=== PATIENT | male | born 1960 | race Caucasian/White ===

== ENCOUNTER 2017-11-19 04:08 | Emergency (ER) | payer SELFPAY ==
[~2017-11-19] VITALS: Ht 165.1 cm; Wt 105.2 kg
[2017-11-19 04:20] VITALS: BP 125/81
--- NOTE | 2017-11-19 04:23 | NUR ---
TO LOBBY VIA W/C VSS. A/W TERESA TOLLIVER NOTED
--- NOTE | 2017-11-19 06:40 | NUR ---
PATIENT CALLED TO BED, NO RESPONSE
--- NOTE | 2017-11-19 06:47 | NUR ---
CALLED THE SECOND TIME NO ANSWER.
--- NOTE | 2017-11-19 06:54 | NUR ---
PATIENT CALLED THE THIRD TIME TO BED, NO RESPONSE
== END 2017-11-19 06:54 | disposition left against medical advice (07) ==
LOC: MED 04:08
DX: M79.602 Pain in left arm (principal); Z53.21 Procedure and treatment not carried out due to patient leaving prior to being seen by health care provider

== ENCOUNTER 2018-02-11 15:13 | Emergency (ER) | payer SELFPAY ==
[~2018-02-11] VITALS: Ht 165.1 cm; Wt 82.2 kg
[2018-02-11 15:25] VITALS: BP 142/76
--- NOTE | 2018-02-11 15:31 | NUR ---
PT AMBULATED TO [facility]
--- NOTE | 2018-02-11 15:35 | NUR ---
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 PT DENIES ALOC . DENIES N/V/D; SKIN IS PINK/WARM/DRY; AAOX4 WITH EVEN AND STEADY GAIT; LUNGS CLEAR BL; HR EVEN AND REGULAR; PT DENIES ANY FEVER, CP, SOB, OR COUGH AT THIS TIME; PATIENT STATES PAIN OF 10/10 AT THIS TIME; VSS; PATIENT POSITIONED FOR COMFORT; HOB ELEVATED; BEDRAILS UP X2; BED DOWN. ER MD MADE AWARE OF PT STATUS.
--- NOTE | 2018-02-11 15:48 | NUR ---
DR VIVEROS EVALUATING PT AT BEDSIDE
[2018-02-11] MEDS ORDERED: KETOROLAC 30 MG/ML VIAL IM ONE (15:55)
[2018-02-11] MEDS ORDERED: MORPHINE SULFATE 4 MG/ML SYR IM ONE (16:45)
--- NOTE | 2018-02-11 16:47 | NUR ---
PT TAKEN FOR CT AND XRAY
--- NOTE | 2018-02-11 18:20 | NUR ---
Patient discharged with v/s stable. Written and verbal after care instructions given and explained. Patient alert, oriented and verbalized understanding of instructions. Ambulatory with steady gait. All questions addressed prior to discharge. ID band removed. Patient advised to follow up with PMD. Rx of NAPROSYN AND NORCO given. Patient educated on indication of medication including possible reaction and side effects. Opportunity to ask questions provided and answered.
[2018-02-11 18:24] VITALS: BP 132/85
== END 2018-02-11 18:20 | disposition home or self-care (01) ==
LOC: MED 15:13
DX: S46.911A Strain of unspecified muscle, fascia and tendon at shoulder and upper arm level, right arm, initial encounter (principal); X58.XXXA Exposure to other specified factors, initial encounter; Y93.89 Activity, other specified; Y92.89 Other specified places as the place of occurrence of the external cause; Y99.8 Other external cause status
CPT/HCPCS: 71045; 72125; 96372; 99284; J1885; J2270; Q0092

== ENCOUNTER 2021-07-02 15:39 | Emergency (ER) | payer OTHER ==
[~2021-07-02] VITALS: Ht 165.1 cm; Wt 99.8 kg
[2021-07-02 15:40] VITALS: BP 160/97
--- NOTE | 2021-07-02 15:40 | NUR ---
PT BIBA AND PLACED IN BED 2
--- NOTE | 2021-07-02 15:44 | NUR ---
DR. TEMPLETON BEDSIDE EVALUATING PT
[2021-07-02] MEDS ORDERED: ACETAMINOPHEN EXTRA STRENGTH 500 MG TAB PO ONE (15:55)
[2021-07-02] MEDS ORDERED: diazePAM 5 MG TAB PO ONE (15:55)
[2021-07-02] MEDS ORDERED: KETOROLAC 30 MG/ML VIAL IM ONE (15:55)
--- NOTE | 2021-07-02 16:00 | NUR ---
61 Y MALE THAT WAS BIBA FROM [facility] FROM WORK. 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 [facility] ON SCENE REPORT PT WAS IN SEVERE PAIN AND DRAGGING HIS LEG TO THE GURNEY DUE TO PAIN. PT STATES PAIN IS CURRENTLY 8/10 AND IS THROBBING PAIN. DENIES ANY RELIEF AND STATED PAIN IS CONSTANTLY THERE HX DENIES RX DENIES
[2021-07-02 16:45] LABS: BASOPHILS % (AUTO) 1.1 % (0.0-2.0); EOSINOPHILS % (AUTO) 1.1 % (0.0-4.0); HEMATOCRIT 42.9 % (36-52); HEMOGLOBIN 14.9 g/dL (12.0-18.0); LYMPHOCYTES # (AUTO) 1.6 K/uL (2.0-11.5); LYMPHOCYTES % (AUTO) 40.3 % (20.5-51.1); MEAN CORPUSCULAR HEMOGLOBIN 33 pg (27-31); MEAN CORPUSCULAR HGB CONC 35 g/dL (33-37); MEAN CORPUSCULAR VOLUME 95.6 fL (80-94); MONOCYTES # (AUTO) 0.3 K/uL (0.8-1.0); MONOCYTES % (AUTO) 7.3 % (1.7-9.3); NEUTROPHILS % (AUTO) 50.2 % (42.2-75.2); PLATELET COUNT (AUTO) 220 K/uL (140-450); RED BLOOD CELL COUNT(AUTO) 4.49 MIL/uL (4.20-6.10); RED CELL DISTRIBUTION WIDTH 12.8 % (11.6-13.7)
[2021-07-02 17:00] LABS: ALBUMIN 3.4 g/dL (3.4-5.0); ANION GAP 14.9 (8-16); CARBON DIOXIDE 23.5 mmol/L (21-32); CREATININE 0.9 mg/dL (0.6-1.3); POTASSIUM 3.4 mmol/L (3.5-5.1); TOTAL BILIRUBIN 0.5 mg/dL (0.0-1.0)
[2021-07-02] MEDS ORDERED: METH-1681 PO (18:33)
[2021-07-02 18:39] VITALS: BP 124/82
--- NOTE | 2021-07-02 18:40 | NUR ---
Patient discharged with v/s stable. Written and verbal after care instructions given and explained. Patient alert, oriented and verbalized understanding of instructions. Ambulatory with steady gait. All questions addressed prior to discharge. ID band removed. Patient advised to follow up with PMD. Rx of ROBAXIN given. Patient educated on indication of medication including possible reaction and side effects. Opportunity to ask questions provided and answered.
== END 2021-07-02 18:40 | disposition home or self-care (01) ==
LOC: MED 15:39
DX: M54.6 Pain in thoracic spine (principal); M62.830 Muscle spasm of back
CPT/HCPCS: 36415; 71045; 80053; 84484; 85025; 93005; 96372; 99285; J1885

== ENCOUNTER 2022-03-08 19:34 | Emergency (ER) | payer MEDICAID, OTHER ==
[~2022-03-08] VITALS: Ht 165.1 cm; Wt 68.0 kg
[~2022-03-08 19:34] MED LIST: METH-1681 PO
[2022-03-08 19:35] VITALS: BP 130/77
--- NOTE | 2022-03-08 19:43 | NUR ---
PT TO [facility].
--- NOTE | 2022-03-08 19:46 | NUR ---
Dr. Short examining patient.
[2022-03-08 21:16] LABS: ALBUMIN 3.7 g/dL (3.4-5.0); ANION GAP 15.7 (8-16); CARBON DIOXIDE 23.2 mmol/L (21-32); CREATININE 0.8 mg/dL (0.6-1.3); POTASSIUM 3.9 mmol/L (3.5-5.1); TOTAL BILIRUBIN 0.4 mg/dL (0.0-1.0)
[2022-03-08 21:40] LABS: BASOPHILS % (AUTO) 0.3 % (0.0-2.0); EOSINOPHILS # (AUTO) 0.1 K/uL (0-0.4); EOSINOPHILS % (AUTO) 2.5 % (0.0-4.0); HEMATOCRIT 42.5 % (36-52); HEMOGLOBIN 14.7 g/dL (12.0-18.0); LYMPHOCYTES # (AUTO) 2.2 K/uL (2.0-11.5); LYMPHOCYTES % (AUTO) 53.3 % (20.5-51.1); MEAN CORPUSCULAR HEMOGLOBIN 32 pg (27-31); MEAN CORPUSCULAR HGB CONC 35 g/dL (33-37); MEAN CORPUSCULAR VOLUME 93.2 fL (80-94); MONOCYTES # (AUTO) 0.3 K/uL (0.8-1.0); MONOCYTES % (AUTO) 6.7 % (1.7-9.3); NEUTROPHILS # (AUTO) 1.5 K/uL (1.8-7.7); NEUTROPHILS % (AUTO) 37.2 % (42.2-75.2); PLATELET COUNT (AUTO) 274 K/uL (140-450); RED BLOOD CELL COUNT(AUTO) 4.56 MIL/uL (4.20-6.10); RED CELL DISTRIBUTION WIDTH 13.1 % (11.6-13.7); WHITE BLOOD COUNT (AUTO) 4.1 K/uL (4.8-10.8)
--- NOTE | 2022-03-08 22:33 | NUR ---
PT REPORTS CHEST FEELS NORMAL AT THIS TIME W/O PAIN.
--- NOTE | 2022-03-08 23:29 | NUR ---
Dr. Rivera examining patient.
[2022-03-08 23:39] VITALS: BP 124/85
--- NOTE | 2022-03-08 23:39 | NUR ---
Patient discharged with v/s stable. Written and verbal after care instructions given and explained. Patient verbalized understanding. Ambulatory with steady gait. All questions addressed prior to discharge. Advised to follow up with PMD.
== END 2022-03-08 23:39 | disposition home or self-care (01) ==
LOC: MED 19:34
DX: R07.89 Other chest pain (principal)
CPT/HCPCS: 36415; 71045; 80053; 83880; 84484; 85025; 93005; 99285

== ENCOUNTER 2022-05-02 15:32 | Emergency (ER) | payer MEDICAID ==
[~2022-05-02] VITALS: Ht 165.1 cm; Wt 77.1 kg
[2022-05-02 16:33] VITALS: BP 128/78
[2022-05-02 17:25] LABS: BASOPHILS % (AUTO) 0.6 % (0.0-2.0); EOSINOPHILS # (AUTO) 0.1 K/uL (0-0.4); EOSINOPHILS % (AUTO) 1.9 % (0.0-4.0); HEMATOCRIT 43.9 % (36-52); LYMPHOCYTES # (AUTO) 1.7 K/uL (2.0-11.5); LYMPHOCYTES % (AUTO) 43.3 % (20.5-51.1); MEAN CORPUSCULAR HEMOGLOBIN 32 pg (27-31); MEAN CORPUSCULAR HGB CONC 34 g/dL (33-37); MEAN CORPUSCULAR VOLUME 94.5 fL (80-94); MONOCYTES # (AUTO) 0.2 K/uL (0.8-1.0); MONOCYTES % (AUTO) 5.7 % (1.7-9.3); NEUTROPHILS # (AUTO) 1.9 K/uL (1.8-7.7); NEUTROPHILS % (AUTO) 48.5 % (42.2-75.2); PLATELET COUNT (AUTO) 189 K/uL (140-450); RED BLOOD CELL COUNT(AUTO) 4.65 MIL/uL (4.20-6.10); RED CELL DISTRIBUTION WIDTH 13.3 % (11.6-13.7); WHITE BLOOD COUNT (AUTO) 3.8 K/uL (4.8-10.8)
[2022-05-02 17:48] LABS: LIPASE 73 U/L (73-393)
[2022-05-02 17:50] LABS: ALBUMIN 3.8 g/dL (3.4-5.0); ANION GAP 9.8 (8-16); CARBON DIOXIDE 26.7 mmol/L (21-32); POTASSIUM 3.5 mmol/L (3.5-5.1); TOTAL BILIRUBIN 0.7 mg/dL (0.0-1.0)
[2022-05-02] MEDS ORDERED: NAPR-54 PO (18:53)
[2022-05-02 19:05] VITALS: BP 130/78
== END 2022-05-02 19:05 | disposition home or self-care (01) ==
LOC: MED 15:32
DX: R10.9 Unspecified abdominal pain (principal); R07.89 Other chest pain; M79.18 Myalgia, other site; Z79.1 Long term (current) use of non-steroidal anti-inflammatories (NSAID); Z79.899 Other long term (current) drug therapy
CPT/HCPCS: 36415; 71045; 80053; 83690; 83880; 84484; 85025; 93005; 99285

== ENCOUNTER 2022-10-03 22:29 | Emergency (ER) | payer MEDICAID ==
[~2022-10-03] VITALS: Ht 165.1 cm; Wt 74.8 kg
[~2022-10-03 22:29] MED LIST changes: +NAPR-54 PO
[2022-10-03 22:42] VITALS: BP 127/95
--- NOTE | 2022-10-04 03:50 | NUR ---
pt taken to bed #10
--- NOTE | 2022-10-04 04:31 | NUR ---
X-Ray at bedside.
[2022-10-04 05:20] VITALS: BP 140/87
[2022-10-04 05:25] LABS: APPEARANCE,URINE CLEAR (CLEAR); BILIRUBIN,URINE NEGATIVE (NEGATIVE); BLOOD, URINE NEGATIVE (NEGATIVE); COLOR,URINE YELLOW (YELLOW); LEUKOCYTE ESTERASE ,URINE NEGATIVE (NEGATIVE); NITRITE, URINE NEGATIVE (NEGATIVE); PH,URINE 5.5 (5.0-9.0); UGLUCOSE TRACE (NEGATIVE)
[2022-10-04] MEDS ORDERED: ACET-10509 PO (05:55)
[2022-10-04] MEDS ORDERED: CYCL-711 PO (05:55)
--- NOTE | 2022-10-04 08:09 | NUR ---
CALLED LOBBY AND OUTSIDE ER LOBBY; NO ANSWER.
--- NOTE | 2022-10-04 08:11 | NUR ---
Jere mercado in ED - 10/04/22 at 0812 by FLORENTINO PATIENT LEFT WITHOUT DISCHARGE PAPERWORK. RX PROVENTIL AND [facility]RAM[facility]CIN [facility].
--- NOTE | 2022-10-04 08:11 | NUR ---
PATIENT LEFT WITHOUT DISCHARGE PAPERWORK. RX TYLENOL AND FLEXERIL SENT TO [facility].
== END 2022-10-04 08:11 | disposition home or self-care (01) ==
LOC: MED 22:29
DX: R10.9 Unspecified abdominal pain (principal); R20.0 Anesthesia of skin; Z79.899 Other long term (current) drug therapy
CPT/HCPCS: 71045; 81003; 93005; 99285; Q0092

== ENCOUNTER 2023-02-20 13:05 | Emergency (ER) | payer MEDICAID ==
[~2023-02-20] VITALS: Ht 165.1 cm; Wt 104.3 kg
[~2023-02-20 13:05] MED LIST changes: +ACET-10509 PO; +CYCL-711 PO
[2023-02-20 13:30] VITALS: BP 131/91
[2023-02-20] MEDS ORDERED: KETOROLAC 15 MG/ML VIAL IM ONE (15:20)
[2023-02-20] MEDS ORDERED: ACETAMINOPHEN 325 MG TAB PO ONE (15:20)
[2023-02-20] MEDS ORDERED: MECLIZINE 25 MG TAB PO ONE (15:20)
--- NOTE | 2023-02-20 15:21 | NUR ---
ATTEMPTED TO BRING PT BACK, NOT FOUND IN LOBBY/OUTSIDE
--- NOTE | 2023-02-20 15:38 | NUR ---
[facility] ATTEMPTED TO BRING PT BACK, NOT FOUND IN LOBBY/OUTSIDE
--- NOTE | 2023-02-20 16:00 | NUR ---
PATIENT ELOPED FROM FACILITY. DISCHARGE INSTRUCTIONS NOT GIVEN TO PATIENT. DR. NOGUEIRA NOTIFIED.
--- NOTE | 2023-02-20 16:00 | NUR ---
ATTEMPTED TO CALL PATIENT, NO ANSWER.
== END 2023-02-20 15:21 | disposition left against medical advice (07) ==
LOC: MED 13:05
DX: R51.9 Headache, unspecified (principal); R42 Dizziness and giddiness
CPT/HCPCS: 99281